=== PATIENT | female | born 1990 | race African-American/Black ===

== ENCOUNTER 2021-07-10 13:20 | Observation (INO) | payer SELFPAY ==
[~2021-07-10] VITALS: Ht 157.5 cm; Wt 72.5 kg
[~2021-07-10 13:20] MED LIST: CIPR500T94 PO; HYDR-3164 PO; ONDA4TAB7 PO; PROM25TA10 PO; TAMS0.4C97 PO
[2021-07-10 14:01] LABS: BILIRUBIN,URINE NEGATIVE (NEG); CLARITY,URINE CLOUDY; COLOR,URINE YELLOW; NITRITE,URINE NEGATIVE (NEG); PROTEIN,URINE >=300 mg/dL (NEG-TRACE)
[2021-07-10 14:12] LABS: BACTERIA,URINE MANY /HPF (0-FEW); WBC,URINE >40 /HPF (0-4)
[2021-07-10] MEDS: IV RINGERS,LACTATED 1000ML 1,000 ML IV SCH ×3 (14:18→19:19)
[2021-07-10] MEDS: ONDANSETRON PF 4 MG/2 ML VIAL. IVP PRN (14:35)
--- NOTE | 2021-07-10 18:53 | PDOC1 ---
CUTTER OUT H&P Date of Admission: Date of Admission: Jul 10, 2021 at 13:20 History of Present Illness: EDC: 11/17/20 LMP: 02/20/21 31y @ 21.3 by 1st trimester u/s who presented to L&D with N/V. The pt states that since Wednesday she has been constantly throwing and has been unable to keep anything down. She reports of symptoms of right sided back pain and MASON. Around 1800 she spiked a fever of 100.6. She does not recall any f/c at home. The pt has a h/o frequent UTIs and kidney stones. The pt gets her care at [facility]. PMH: kidney stones, frequent UTIs PSH: Denies Meds: None All: NKDA OBHx: G1 SH: no tob, no EtOH FH: HTN, CA Medications: Meds: Current Medications Medications (Trade) Dose Ordered Sig/Florencio Route PRN Reason Start Time Stop Time Status Last Admin Dose Admin Ringer's Solution 1,000 ml @ 125 mls/hr Q8H IV 07/10/21 14:00 07/10/21 15:48 Ondansetron HCl (Zofran) 4 mg PRN Q6HRS PRN IVP NAUSEA/VOMITING 07/10/21 14:30 07/10/21 14:35 Allergies: Coded Allergies: No Known Drug Allergies (Unverified , 07/06/15) Physical Exam: PE: GENERAL: No apparent distress. Alert and oriented. HEENT: Head normocephalic, atraumatic. NECK: Supple LUNGS: Clear to auscultation. HEART: RRR, S1, S2 present, pulses intact, tachy ABDOMEN: Soft, positive bowel sounds. EXTREMITIES: No cyanosis or edema. NEUROLOGIC: Normal speech, normal tone PSYCHIATRIC: Normal affect, normal mood. SKIN: No ulceration. Right flank tenderness FHR: 130s [place]: quiet Labs: Laboratory Tests Test 07/10/21 13:30 Urine Collection Type Unknown Urine Color Yellow Urine Clarity Cloudy Urine pH 6.0 (<5.0-8.0) Urine Specific [place] 1.020 (1.000-1.030) Urine Protein >=300 mg/dL (NEG-TRACE) Urine Glucose (UA) Negative mg/dL (NEG) Urine Ketones (Stick) 15 mg/dL (NEG) Urine Blood Large (NEG) Urine Nitrite Negative (NEG) Urine Bilirubin Negative (NEG) Urine Urobilinogen Dipstick 1.0 mg/dL (0.2 mg/dL) Urine Leukocyte Esterase Moderate (NEG) Urine RBC 1-2 /HPF (0-2) Urine WBC >40 /HPF (0-4) Urine Squamous Epithelial Cells Mod /LPF Urine Bacteria Many /HPF (0-FEW) Urine Mucus Marked /LPF Assessment & Plan: A/P 31y @ 21.3 by 1st trimester u/s 1.) Right pyelonephritis Tmax 101.4 (181), will start Rocephin, CBC and Ucx 2.) N/V symptomatic relief 3.) Elevated BP possible cHTN 4.) Fetus reassuring for gestation age 5.) GBS unk HI TADEO MD Jul 10, 2021 18:53
[2021-07-10 18:57] LABS: BASO % 0 % (0-3); EOS % 0 % (0-3); HEMATOCRIT 26.4 % (36.0-47.0); HEMOGLOBIN 9.1 g/dL (12.0-15.5); LYMPH # 1.5 x10^3/uL (1.0-4.8); LYMPH % 8 % (24-48); MEAN CORPUSCULAR HEMOGLOBIN 32 pg (25-35); MEAN CORPUSCULAR HGB CONC 35 g/dL (31-37); MEAN CORPUSCULAR VOLUME 92 fL (79-100); MONO % 10 % (0-9); NEUT # 16.4 x10^3/uL (1.8-7.7); NEUT % 82 % (31-73); PLATELET COUNT 178 x10^3/uL (140-400); RED BLOOD COUNT 2.89 x10^6/uL (3.50-5.40); RED CELL DISTRIBUTION WIDTH 12.1 % (11.5-14.5)
[2021-07-10] MEDS: ACETAMINOPHEN 325 MG TABLET. PO PRN (19:17)
[2021-07-10] MEDS: cefTRIAXone IV Push 1 GM VIAL. IVP SCH (19:18)
[2021-07-10] MEDS: MORPHINE SULFATE 4 MG/ML INJ. IV PRN (19:18)
[2021-07-11] MEDS: ACETAMINOPHEN 325 MG TABLET. PO PRN ×4 (03:24→21:17)
[2021-07-11] MEDS: MORPHINE SULFATE 4 MG/ML INJ. IV PRN (03:25)
[2021-07-11] MEDS: ONDANSETRON PF 4 MG/2 ML VIAL. IVP PRN ×2 (10:10→15:39)
[2021-07-11 12:33] LABS: BASO # 0.1 x10^3/uL (0.0-0.2); BASO % 0 % (0-3); EOS % 0 % (0-3); HEMATOCRIT 27.7 % (36.0-47.0); HEMOGLOBIN 9.5 g/dL (12.0-15.5); LYMPH # 0.9 x10^3/uL (1.0-4.8); LYMPH % 5 % (24-48); MEAN CORPUSCULAR HEMOGLOBIN 32 pg (25-35); MEAN CORPUSCULAR HGB CONC 34 g/dL (31-37); MEAN CORPUSCULAR VOLUME 93 fL (79-100); MONO # 1.9 x10^3/uL (0.0-1.1); MONO % 10 % (0-9); NEUT # 15.9 x10^3/uL (1.8-7.7); NEUT % 85 % (31-73); PLATELET COUNT 198 x10^3/uL (140-400); RED CELL DISTRIBUTION WIDTH 12.3 % (11.5-14.5); WHITE BLOOD COUNT 18.8 x10^3/uL (4.0-11.0)
--- NOTE | 2021-07-11 13:28 | PDOC ---
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 She states that she was able to jaime some fruit last night. She still has the back and head pain. She states that she feels hot, but no f/c. Objective: Vital Signs: Vital Signs Date Time Temp Pulse Resp B/P (MAP) Pulse Ox O2 Delivery O2 Flow Rate FiO2 07/10/21 19:18 18 Room Air Vital Signs Date Time Temp Pulse Resp B/P (MAP) Pulse Ox O2 Delivery O2 Flow Rate FiO2 07/11/21 03:25 19 Room Air Labs: Laboratory Tests Test 07/10/21 13:30 07/10/21 18:45 07/10/21 18:46 07/11/21 12:15 Urine Collection Type Unknown Urine Color Yellow Urine Clarity Cloudy Urine pH 6.0 (<5.0-8.0) Urine Specific [place] 1.020 (1.000-1.030) Urine Protein >=300 mg/dL (NEG-TRACE) Urine Glucose (UA) Negative mg/dL (NEG) Urine Ketones (Stick) 15 mg/dL (NEG) Urine Blood Large (NEG) Urine Nitrite Negative (NEG) Urine Bilirubin Negative (NEG) Urine Urobilinogen Dipstick 1.0 mg/dL (0.2 mg/dL) Urine Leukocyte Esterase Moderate (NEG) Urine RBC 1-2 /HPF (0-2) Urine WBC >40 /HPF (0-4) Urine Squamous Epithelial Cells Mod /LPF Urine Bacteria Many /HPF (0-FEW) Urine Mucus Marked /LPF White Blood Count 20.0 x10^3/uL (4.0-11.0) H 18.8 x10^3/uL (4.0-11.0) H Red Blood Count 2.89 x10^6/uL (3.50-5.40) L 3.00 x10^6/uL (3.50-5.40) L Hemoglobin 9.1 g/dL (12.0-15.5) L 9.5 g/dL (12.0-15.5) L Hematocrit 26.4 % (36.0-47.0) L 27.7 % (36.0-47.0) L Mean Corpuscular Volume 92 fL (79-100) 93 fL (79-100) Mean Corpuscular Hemoglobin 32 pg (25-35) 32 pg (25-35) Mean Corpuscular Hemoglobin Concent 35 g/dL (31-37) 34 g/dL (31-37) Red Cell Distribution Width 12.1 % (11.5-14.5) 12.3 % (11.5-14.5) Platelet Count 178 x10^3/uL (140-400) 198 x10^3/uL (140-400) Neutrophils (%) (Auto) 82 % (31-73) H 85 % (31-73) H Lymphocytes (%) (Auto) 8 % (24-48) L 5 % (24-48) L Monocytes (%) (Auto) 10 % (0-9) H 10 % (0-9) H Eosinophils (%) (Auto) 0 % (0-3) 0 % (0-3) Basophils (%) (Auto) 0 % (0-3) 0 % (0-3) Neutrophils # (Auto) 16.4 x10^3/uL (1.8-7.7) H 15.9 x10^3/uL (1.8-7.7) H Lymphocytes # (Auto) 1.5 x10^3/uL (1.0-4.8) 0.9 x10^3/uL (1.0-4.8) L Monocytes # (Auto) 2.0 x10^3/uL (0.0-1.1) H 1.9 x10^3/uL (0.0-1.1) H Eosinophils # (Auto) 0.0 x10^3/uL (0.0-0.7) 0.0 x10^3/uL (0.0-0.7) Basophils # (Auto) 0.0 x10^3/uL (0.0-0.2) 0.1 x10^3/uL (0.0-0.2) SARS-CoV-2 RNA (BESSIE) Negative (Negative) SARS-CoV-2 Antigen (Rapid) Negative (NEGATIVE) Platelet Estimate Pending Laboratory Tests 07/10/21 18:45 07/11/21 12:15 Laboratory Tests 07/11/21 12:15 Physical Exam: GENERAL: No apparent distress. Alert and oriented. HEENT: Head normocephalic, atraumatic. NECK: Supple LUNGS: Clear to auscultation. HEART: RRR, S1, S2 present, pulses intact ABDOMEN: Soft, positive bowel sounds. EXTREMITIES: No cyanosis or edema. NEUROLOGIC: Normal speech, normal tone PSYCHIATRIC: Normal affect, normal mood. SKIN: No ulceration. Assessment & Plan: A/P 31y @ 21.4 by 1st trimester u/s 1.) Right pyelonephritis Tmax 101.4 (07/10 at 1813), AF since 07/10 at 1931, on Rocephin, Ucx pending, WBC 20.0 -> 18.8 (left shift increased) 2.) N/V symptomatic relief 3.) MASON 4.) Anemia Hgb 9.1 -> 9.5 5.) Elevated BP possible cHTN, BP's nml to mild 6.) Fetus reassuring for gestation age 7.) GBS unk not in labor HI TADEO MD Jul 11, 2021 13:28
[2021-07-11 14:02] LABS: % BANDS 6 % (0-9); % BASOS 1 % (0-3); % LYMPHS 7 % (24-48); % MONOS 5 % (0-10); % SEGS 81 % (35-66); PLT ESTIMATE ADEQUATE (ADEQUATE)
[2021-07-11] MEDS: IV RINGERS,LACTATED 1000ML 1,000 ML IV SCH ×2 (15:39→23:28)
[2021-07-11] MEDS: cefTRIAXone IV Push 1 GM VIAL. IVP SCH (19:20)
[2021-07-12] MEDS: ACETAMINOPHEN 325 MG TABLET. PO PRN ×3 (04:36→22:45)
[2021-07-12] MEDS: ONDANSETRON PF 4 MG/2 ML VIAL. IVP PRN (04:37)
[2021-07-12 08:30] LABS: BASO % 0 % (0-3); EOS % 0 % (0-3); HEMATOCRIT 26.6 % (36.0-47.0); HEMOGLOBIN 9.1 g/dL (12.0-15.5); LYMPH # 1.1 x10^3/uL (1.0-4.8); LYMPH % 8 % (24-48); MEAN CORPUSCULAR HEMOGLOBIN 32 pg (25-35); MEAN CORPUSCULAR HGB CONC 34 g/dL (31-37); MEAN CORPUSCULAR VOLUME 93 fL (79-100); MONO # 1.5 x10^3/uL (0.0-1.1); MONO % 12 % (0-9); NEUT # 9.9 x10^3/uL (1.8-7.7); NEUT % 79 % (31-73); PLATELET COUNT 200 x10^3/uL (140-400); RED BLOOD COUNT 2.86 x10^6/uL (3.50-5.40); RED CELL DISTRIBUTION WIDTH 12.1 % (11.5-14.5); WHITE BLOOD COUNT 12.4 x10^3/uL (4.0-11.0)
[2021-07-12 08:40] LABS: CALCIUM 8.8 mg/dL (8.5-10.1); CREATININE 0.7 mg/dL (0.6-1.0); GFR 119.7; POTASSIUM 3.4 mmol/L (3.5-5.1)
--- NOTE | 2021-07-12 10:07 | PDOC ---
MANAGER REIMBURSEMENT PROGRESS NOTE Date of Service: DATE: 07/12/21 TIME: 10:06 Subjective: Pt states that she feels better. She states that her MASON is better. She also is having less nausea and was able to jaime PO last night. Objective: Labs: Laboratory Tests Test 07/11/21 12:15 07/12/21 07:30 White Blood Count 18.8 x10^3/uL (4.0-11.0) H 12.4 x10^3/uL (4.0-11.0) H Red Blood Count 3.00 x10^6/uL (3.50-5.40) L 2.86 x10^6/uL (3.50-5.40) L Hemoglobin 9.5 g/dL (12.0-15.5) L 9.1 g/dL (12.0-15.5) L Hematocrit 27.7 % (36.0-47.0) L 26.6 % (36.0-47.0) L Mean Corpuscular Volume 93 fL (79-100) 93 fL (79-100) Mean Corpuscular Hemoglobin 32 pg (25-35) 32 pg (25-35) Mean Corpuscular Hemoglobin Concent 34 g/dL (31-37) 34 g/dL (31-37) Red Cell Distribution Width 12.3 % (11.5-14.5) 12.1 % (11.5-14.5) Platelet Count 198 x10^3/uL (140-400) 200 x10^3/uL (140-400) Neutrophils (%) (Auto) 85 % (31-73) H 79 % (31-73) H Lymphocytes (%) (Auto) 5 % (24-48) L 8 % (24-48) L Monocytes (%) (Auto) 10 % (0-9) H 12 % (0-9) H Eosinophils (%) (Auto) 0 % (0-3) 0 % (0-3) Basophils (%) (Auto) 0 % (0-3) 0 % (0-3) Neutrophils # (Auto) 15.9 x10^3/uL (1.8-7.7) H 9.9 x10^3/uL (1.8-7.7) H Lymphocytes # (Auto) 0.9 x10^3/uL (1.0-4.8) L 1.1 x10^3/uL (1.0-4.8) Monocytes # (Auto) 1.9 x10^3/uL (0.0-1.1) H 1.5 x10^3/uL (0.0-1.1) H Eosinophils # (Auto) 0.0 x10^3/uL (0.0-0.7) 0.0 x10^3/uL (0.0-0.7) Basophils # (Auto) 0.1 x10^3/uL (0.0-0.2) 0.0 x10^3/uL (0.0-0.2) Segmented Neutrophils % 81 % (35-66) H Band Neutrophils % 6 % (0-9) Lymphocytes % 7 % (24-48) L Monocytes % 5 % (0-10) Basophils % 1 % (0-3) Platelet Estimate Adequate (ADEQUATE) Sodium Level 139 mmol/L (136-145) Potassium Level 3.4 mmol/L (3.5-5.1) L Chloride Level 105 mmol/L (98-107) Carbon Dioxide Level 25 mmol/L (21-32) Anion Gap 9 (6-14) Blood Urea Nitrogen 3 mg/dL (7-20) L Creatinine 0.7 mg/dL (0.6-1.0) Estimated GFR (Cockcroft-Gault) 119.7 Glucose Level 86 mg/dL (70-99) Calcium Level 8.8 mg/dL (8.5-10.1) Laboratory Tests 07/11/21 12:15 07/12/21 07:30 Laboratory Tests 07/12/21 07:30 Laboratory Tests 07/12/21 07:30 Physical Exam: GENERAL: No apparent distress. Alert and oriented. HEENT: Head normocephalic, atraumatic. NECK: Supple LUNGS: Clear to auscultation. HEART: RRR, S1, S2 present, pulses intact ABDOMEN: Soft, positive bowel sounds. EXTREMITIES: No cyanosis or edema. NEUROLOGIC: Normal speech, normal tone PSYCHIATRIC: Normal affect, normal mood. SKIN: No ulceration. Assessment & Plan: A/P 31y @ 21.5 by 1st trimester u/s 1.) Right pyelonephritis Tmax 101.4 (9/2 at 1813), AF since 07/10 at 1931, will switch to Keflex, Ucx pending, WBC 20.0 -> 18.8 -> 12.4 2.) N/V symptomatic relief 3.) MASON - improving 4.) Anemia Hgb 9.1 -> 9.5 -> 9.1 5.) Elevated BP possible cHTN, BP's nml to mild 6.) Fetus reassuring for gestation age 7.) GBS unk not in labor HI TADEO MD Jul 12, 2021 10:07
[2021-07-12] MEDS ORDERED: CEPH500C PO (10:11)
[2021-07-12] MEDS ORDERED: FERR325T14 PO (10:12)
[2021-07-12] MEDS ORDERED: ONDA4TAB7 PO (10:12)
[2021-07-12] MEDS: CEPHALEXIN 250 MG CAPSULE. PO SCH ×3 (11:21→20:49)
[2021-07-13 08:36] VITALS: BP 131/76
[2021-07-13] MEDS: CEPHALEXIN 250 MG CAPSULE. PO SCH ×2 (09:43→16:25)
--- NOTE | 2021-07-13 11:30 | PDOC ---
PRIMER POWDER BLENDER WET PROGRESS NOTE Date of Service: DATE: 07/13/21 TIME: 11:30 Subjective: Pt feels good. Remains AF. MASON and back pain. Objective: Vital Signs: Vital Signs Date Time Temp Pulse Resp B/P (MAP) Pulse Ox O2 Delivery O2 Flow Rate FiO2 07/13/21 08:36 98.4 78 18 131/76 (94) 98.4 Vital Signs Date Time Temp Pulse Resp B/P (MAP) Pulse Ox O2 Delivery O2 Flow Rate FiO2 07/13/21 08:36 98.4 78 18 131/76 (94) 98.4 Physical Exam: GENERAL: No apparent distress. Alert and oriented. HEENT: Head normocephalic, atraumatic. NECK: Supple LUNGS: Clear to auscultation. HEART: RRR, S1, S2 present, pulses intact ABDOMEN: Soft, positive bowel sounds. EXTREMITIES: No cyanosis or edema. NEUROLOGIC: Normal speech, normal tone PSYCHIATRIC: Normal affect, normal mood. SKIN: No ulceration. Assessment & Plan: A/P 31y @ 21.6 by 1st trimester u/s 1.) Right pyelonephritis Tmax 101.4 (07/10 at 1813), AF since 07/10 at 1931, on Keflex, Ucx with three or more organisms isolated. Results consistent with co lonization or contamination during the collection process. WBC 20.0 -> 18.8 -> 12.4 2.) N/V improved, symptomatic relief 3.) MASON - improving 4.) Anemia Hgb 9.1 -> 9.5 -> 9.1 5.) Elevated BP possible cHTN, BP's nml to mild, nml over last 24hrs 6.) Fetus reassuring for gestation age 7.) GBS unk not in labor HI TADEO MD Jul 13, 2021 11:30
--- NOTE | 2021-07-13 12:21 | DS ---
DATE OF DISCHARGE: 07/13/2021 ADMISSION DIAGNOSES: 1. Intrauterine at 21 weeks and 3 days by first trimester ultrasound. 2. Right flank pain. 3. Nausea and vomiting. 4. Headache. 5. Elevated blood pressure. 6. Group B streptococcus unknown. DISCHARGE DIAGNOSES: 1. Intrauterine at 21 weeks and 3 days by first trimester ultrasound. 2. Right pyelonephritis. 3. Nausea and vomiting. 4. Headache. 5. Elevated blood pressure. 6. Group B streptococcus unknown. PROCEDURES: None. BRIEF HOSPITAL COURSE: The patient is a 31-year-old 1, para 0 who presented to Labor and Delivery at 21 weeks and 3 days by first trimester ultrasound with nausea and vomiting. The patient is followed at [facility]. On Wednesday, she had been throwing up constantly and unable to keep anything down. The patient also reported headache as well as some right-sided back pain. After the few hours of admission, the patient spiked a fever of 100.6. She did not recall any fevers or chills at home over the time period described above. The patient did report frequent urinary tract infections as well as kidney stones. Due to the fever along with the right flank pain, the patient was presumed to have pyelonephritis. She was subsequently started on Rocephin. By hospital day #2, the patient was switched to Keflex from the Rocephin. The patient had a white count on admission of 20.0 and on hospital day after 1 dose of Rocephin, it went to 18.8, but on hospital day #2, returned to normal at 12.4 with an improved left shift. The patient's nausea and vomiting also improved as well as her headache. The patient was found to be anemic with hemoglobin of 9.1 on admission. The patient also had a few mild range blood pressures, but for the majority were normal, meaning that she possibly could have chronic hypertension. By hospital day #4, the patient was meeting all discharge criteria and subsequently discharged home. DISCHARGE INSTRUCTIONS: The patient was told not to lift anything greater than 20 pounds, have pelvic rest for 6 weeks. CALL IF: The patient was to call if she had fevers, chills, nausea, vomiting, abdominal pain, or any additional questions or concerns. FOLLOWUP APPOINTMENT: The patient was to follow up in 1-2 weeks at [facility] with her primary OB. DISCHARGE MEDICATIONS: The patient was discharged on Keflex 500 mg, 28 pills; ferrous sulfate 325 mg, 30 pills with 2 refills and Zofran 4 mg, 30 pills with 2 refills. ANNA/ANGIE/SIMONE DR: Daniel TID: [id number] MTDD
== END 2021-07-13 17:42 | disposition home or self-care (01) ==
LOC: 3 SO LND 13:20
PROVIDERS: ADMIT Obstetrics & Gynecology; ATTEND Obstetrics & Gynecology
DX: O21.2 Late vomiting of pregnancy (principal); Z20.822 Contact with and (suspected) exposure to COVID-19; O26.832 Pregnancy related renal disease, second trimester; O23.02 Infections of kidney in pregnancy, second trimester; N20.0 Calculus of kidney; O99.012 Anemia complicating pregnancy, second trimester; D64.9 Anemia, unspecified; O26.892 Other specified pregnancy related conditions, second trimester; R10.9 Unspecified abdominal pain; R50.9 Fever, unspecified; R03.0 Elevated blood-pressure reading, without diagnosis of hypertension; R51.9 Headache, unspecified; O99.891 Other specified diseases and conditions complicating pregnancy; M54.9 Dorsalgia, unspecified; Z87.442 Personal history of urinary calculi; Z87.440 Personal history of urinary (tract) infections; Z3A.21 21 weeks gestation of pregnancy
CPT/HCPCS: 36415; 59025; 80048; 81001; 85007; 85025; 87086; 87426; 96361; 96374; 96375; 96376; G0378; G0379; J0696; J2270; J2405; J7120; U0003; U0005